=== PATIENT | male | born 1975 | race Hispanic/Latino ===

== ENCOUNTER 2016-11-21 11:08 | Observation (INO) | payer MEDICAID ==
[~2016-11-21] VITALS: Ht 170.2 cm; Wt 107.9 kg
[2016-11-21] VITALS (12 sets, daily range): BP systolic 108–161; BP diastolic 64–91; PULSE 70–96; RESP 14–20; O2SAT 95–100
[~2016-11-21 11:08] MED LIST: NOMED; fentaNYL-PF 50 mCg/mL 2 mL Inj ONE
[2016-11-21] MEDS ORDERED: Ondansetron 8 mg ODT Tablet ONE (11:31)
[2016-11-21 11:44] LABS: BASOPHILS % (AUTO) 0.2 % (0-3); EOSINOPHILS % (AUTO) 0.4 % (0-5); MONOCYTES % (AUTO) 7.1 % (4-12); Mean Corpuscular Hemoglobin 28.7 pg (27.0-35.0); Mean Corpuscular Volume 85.5 fL (81-100); NEUTROPHILS % (AUTO) 80.3 % (40-74); Platelet Count 225 bil/L (150-400)
[2016-11-21 12:08] LABS: Magnesium 1.8 mg/dL (1.6-2.6)
[2016-11-21 12:16] LABS: APPEARANCE,URINE CLEAR (CLEAR,HAZY); COLOR,URINE STRAW (YELLOW); OCCULT BLOOD,URINE TRACE (NEGATIVE); UROBILINOGEN,URINE NORMAL (NORMAL)
--- NOTE | 2016-11-21 13:21 | ED.REPORT ---
HPI-Abd Pain M 40 and Over Date of Service Nov 21, 2016 ED Provider: Arash Boone DO The patient is a 41 year old otherwise healthy male who presents to the emergency department complaining of abdominal pain that began earlier this morning. His pain was initially diffuse but is now localized to his RLQ. He noticed burning with urination earlier this morning. He has experienced nausea and vomiting. He has not had similar symptoms in the past. He denies previous surgeries or medical problems. Nursing Notes Stated Complaint: ABDOMINAL PAIN Chief Complaint: Male Abdominal Pain Nursing Notes Reviewed: Yes Allergies: Coded Allergies: No Known Allergies (Unverified Allergy, 05/22/12) Miscellaneous Medications No Historical Medication (No Historical Medication) Ea General Time Seen by MD: 13:00 Chief Complaint Abdominal pain Hx Obtained From: Patient Arrived By: Walk-in Sudden in Onset?: Yes Onset Occurred: 5 - 8 hours ago Symptom Duration: Since onset Progression since Onset: Constant, Gradually worsening Location: : Diffuse (initially) Quality: Painful Radiation: : RLQ (now localized here) Severity: Current: Moderate Severity: Maximum: Severe Recent Healthcare: No recent doctor visit, No recent hospitalization Similar Sx Previous: No Past Medical History Past Medical History None Past Surgical History None Family History Noncontributory Smoking History Current Some Day Smoker Social History Alcohol Use: "Social" (2-3 beers every few months) Drug Use: Denies drug use Other Social History: Good social support, Local resident Ambulatory Status Independent Review of Systems GI: Reports: Abdominal pain, Nausea, Vomiting, Denies: Bloody/tarry stool, Diarrhea, Hematemesis, Hematochezia, Melena Male: Reports Dysuria Complete sys rev & neg: except as marked. Physical Exam Initial Vital Signs Vital Signs (First) Date Time Temp Pulse Resp B/P Pulse Ox O2 Delivery O2 Flow Rate FiO2 11/21/16 11:16 36.4 83 20 127/88 100 Initial VS: Reviewed Head / Eyes: Atraumatic, Normocephalic, PERRL ENT: Mucous membranes moist, Conjunctiva normal, No scleral icterus Neck: Supple, Non-tender, Full range of motion Lymphatic: No lymphadenopathy Extremities: Vascular intact, Neuro intact, No swelling, No tenderness Skin: Warm, Dry, No cyanosis Neurologic: Alert, Oriented, Nonfocal Psychiatric: Mood/affect normal, Behavior normal, Normal thought content General/Constitutional: Awake, Alert, Cooperative Respiratory / Chest: Atraumatic, Breath sounds NL, Breath sounds = bilat, No respiratory distress, No rales, No rhonchi, No wheezing Cardiovascular: Heart rate NL, Regular rhythm, Heart sounds NL, Peripheral circulation NL Abdomen: Soft, BS normoactive, No distention, No hernia, No palpable mass, No pulsatile mass Tenderness/Guarding/Rebound: Positive: Guarding involuntary, Tender RLQ... Interpretation & Diagnostics Lab Results Interpretation Result Diagram: 11/21/16 1135 11/21/16 1135 Test 11/21/16 11:25 11/21/16 11:35 Urine Color Straw (YELLOW) Urine Appearance Clear (CLEAR,HAZY) Urine pH 8.0 (5.0-8.0) Urine Specific [place] 1.010 (1.003-1.035) Urine Protein Negativemg/dL (NEG,TRACE) Urine Glucose (UA) Negativemg/dL (NEGATIVE) Urine Ketones Negativemg/dL (NEGATIVE) Urine Occult Blood Trace (NEGATIVE) Urine Nitrite Negative (NEGATIVE) Urine Bilirubin Negative (NEGATIVE) Urine Urobilinogen Normalmg/dL (NORMAL) Urine Leukocyte Esterase Negative (NEGATIVE) Urine RBC 0-2/hpf (0-2) Urine WBC 0-5/hpf (0-5) Urine Epithelial Cells Occasional/hpf (NONE-MOD) Urine Crystals None seen (NONE SEEN) Urine Bacteria None/hpf (NONE-FEW) Urine Hyaline Casts None/lpf (NONE) Urine Granular Casts None seen (NONE SEEN) Urine Waxy Casts None seen (NONE SEEN) Urine Red Blood Cell Casts None seen (NONE SEEN) Urine White Blood Cell Casts None seen (NONE SEEN) Urine Mucus None seen (None Seen) Urine Trichomonas None seen (NONE SEEN) Urine Yeast None (NONE SEEN) Urinalysis Comment None Urine Culture Reflexed Not indicated White Blood Count 16.3th/mm3 (3.8-10.1) Red Blood Count 5.19mil/mm3 (4.40-5.80) Hemoglobin 14.9g/dL (13.8-17.2) Hematocrit 44.4% (41.0-50.0) Mean Corpuscular Volume 85.5fL (81-100) Mean Corpuscular Hemoglobin 28.7pg (27.0-35.0) Mean Corpuscular Hemoglobin Concent 33.6% (32.0-37.0) Red Cell Distribution Width 13.2% (12.3-15.4) Platelet Count 225bil/L (150-400) Neutrophils (%) (Auto) 80.3% (40-74) Lymphocytes (%) (Auto) 11.7% (14-46) Monocytes (%) (Auto) 7.1% (4-12) Eosinophils (%) (Auto) 0.4% (0-5) Basophils (%) (Auto) 0.2% (0-3) Sodium Level 138mEq/L (134-144) Potassium Level 4.3mEq/L (3.5-5.2) Chloride Level 97mEq/L (97-108) Carbon Dioxide Level 23mmol/L (18-29) Blood Urea Nitrogen 16mg/dL (6-24) Creatinine 0.73mg/dL (0.76-1.27) Estimat Glomerular Filtration Rate 125mL/min (>59) Glucose Level 131mg/dL (60-99) Calcium Level 9.1mg/dL (8.5-10.1) Magnesium Level 1.8mg/dL (1.6-2.6) Total Bilirubin 0.3mg/dL (0.0-1.2) Aspartate Amino Transf (AST/SGOT) 24U/L (0-50) Alanine Aminotransferase (ALT/SGPT) 24U/L (0-44) Alkaline Phosphatase 108U/L (25-150) Total Protein 8.0g/dL (6.4-8.4) Albumin 4.2g/dL (3.4-5.0) Lipase 16U/L (13-60) Hold Mckeon Top Tube Received (Received) CT Abd / Pelvis Interpretation IMPRESSION: 1. Acute appendicitis. 2. Findings discussed with Dr. Boone on 11.28 at 1411 hrs. Dictated by: Bianca Bell M.D. on 11/21/2016 at 14:11 Study type: Abdominal CT IV contrast Interpretation / Wet Read by: Interpret - Radiologist, Discussed w radiologist Re-Eval/Medical Decision Med Decision/Clinical Course Appendicitis. will plan to go to the OR. Zosyn given in the ER. Fluid resuscitated. Will be admitted. Source of Hx: Old records Re-Evaluation/Progress Note: Rechecked the patient. Discussed CT results, diagnosis, and plan for admission. All questions were addressed. Consultation : Referral / Consult Name: Elijah Castle MD Consulted With: Surgeon Requested Call at: 14:13 Call Returned at: 14:19 Office Nurse: Will see patient, Agrees with eval, Agrees with plan, Accepts admit Counseled Regarding: Diagnosis, Lab results, Need for admission Discharge & Departure Primary Impression: Acute appendicitis Acute appendicitis type: with localized peritonitis Qualified Code: K35.3 - Acute appendicitis with localized peritonitis Disposition: ADMITTED TO HOSPITAL Vital Signs - All Vital Signs Date Time Temp Pulse Resp B/P Pulse Ox O2 Delivery O2 Flow Rate FiO2 11/21/16 11:16 36.4 83 20 127/88 100 )( All Prior VS Reviewed: Yes Condition: Stable Referrals: NOPCP (PCP) Scribe Attestation Portions of this note were transcribed by Willow Bardales. I, Dr. Boone personally performed the history, physical exam and medical decision-making; I reviewed and confirmed the accuracy of the information in the transcribed note. Signed by: Sheron Aguayo, 11/21/2016 and 1430. Arash Boone DO Nov 21, 2016 13:21 Willow Bardales Nov 21, 2016 13:29
[2016-11-21] MEDS ORDERED: 0.9% Sodium Chloride 1,000 ML IV SCH (13:25)
[2016-11-21] MEDS: Ondansetron 2 mg/mL 2 mL Inj IVPUSH PRN ×2 (13:52→16:49)
--- NOTE | 2016-11-21 14:13 | DRSVH ---
PROCEDURE: CT ABDOMEN AND PELVIS WITH CONTRAST ([id number]) INDICATIONS: RLQ pain, wbc 16K TECHNIQUE: After the administration of intravenous contrast, 5 mm thick sections acquired from the diaphragm to the symphysis. 5 mm coronal and sagittal reformats were acquired. For radiation dose reduction, the following was used: automated exposure control, adjustment of mA and/or kV according to patient siz e. COMPARISON: None. FINDINGS: Image quality: Excellent. ABDOMEN: Lung bases: Lung bases are clear. Heart size is normal. Solid organs: Liver and spleen are normal in size and enhancement. Gallbladder is within normal hogue its. Biliary system is non dilated. Pancreas enhances normally. No adrenal nodules. Kidneys demon strate normal size and enhancement, without hydronephrosis. Peritoneum and bowel: Bowel loops demonstrate normal wall thickness and caliber. No free fluid or a ir. There are a few appendicolith present. There is distention of the appendix, measuring 13 mm short axis, with mild surrounding fat stranding. Nodes and vessels: No retroperitoneal or mesenteric adenopathy by size criteria. Aorta and inferior vena cava are normal in size. Miscellaneous: No ventral hernias. PELVIS: Genitourinary: Bladder wall thickness is normal. Miscellaneous: No inguinal hernias or adenopathy. Bones: No suspicious bony lesions. No vertebral body compression fractures. IMPRESSION: 1. Acute appendicitis. 2. Findings discussed with Dr. Boone on 11.28 at 1411 hrs. Dictated by: Bianca Bell M.D. on 11/21/2016 at 14:11 Approved by: Bianca Bell M.D. on 11/21/2016 at 14:11
[2016-11-21] MEDS ORDERED: Piperacillin-Tazo 3.375 Gm Inj 3.375 GM in Dextrose 5% Minibag Plus 50 ML IV ONE ×2 (14:15→20:35)
[2016-11-21] MEDS ORDERED: Alum-Mag Hydrox-Simeth 30 mL Suspension PO PRN (14:30)
[2016-11-21] MEDS ORDERED: Ondansetron 2 mg/mL 2 mL Inj IVPUSH PRN ×3 (14:30→21:25)
[2016-11-21] MEDS: 0.9% Sodium Chloride 1,000 ML IV SCH ×4 (14:30→21:10)
--- NOTE | 2016-11-21 17:43 | NUR ---
arrival Pt arrived on [facility] at 1740, able to transfer from [facility] to bed without assist, Pt stated pain good right now, oriented to room and call light, care continued.
[2016-11-21] MEDS ORDERED: OMEP20TA24 PO (18:30)
--- NOTE | 2016-11-21 18:38 | PCM.HPANE ---
Patient Data Surgeon Admitting Provider:Elijah Castle MD Attending Provider:Elijah Castle MD Primary Care Physician:Regulo Other Provider:Rhoda Damon Anesthesia Reason for Visit Acute Appendicitis Ht/WT & BMI Height (Feet): 5 Height (Inches): 8 Weight (Kilograms): 97.73 Body Mass Index Allergies Coded Allergies: No Known Allergies (Unverified Allergy, Unknown, 11/21/16) Past Anesthesia History Anesthesia History: Denies:: Anesthesia Reactions Diabetes History Hx Diabetes?: No MRSA MRSA: No Medications Reported Medications Omeprazole Magnesium (Prilosec Otc)20 Mg Tablet.dr20 Mg PO DAILY PRN For Dyspepsia or Heartburn #1 PKG Ref 0 11/21/16 No Historical Medication Ea 05/22/12 History History of ENT Problems?: No Hx of Heart Problems?: No Cardiovascular History: Denies:: Congestive Heart Failure Hypertension Hx of Respiratory Problem?: No Respiratory History: Denies:: Tuberculosis Hx Neurologic Problems?: No Hx of GI Problems?: Yes Gastrointestinal History: Positive for:: Gastrointestinal Bleeding Heartburn Hx of Problems?: No Male Hx: Denies:: Prostate Problems Scrotal Mass Testicular Surgery Hx Musculoskeletal Problems?: No Hx of Psycho/Social Problems?: No History Blood Transfusions: Positive for:: Accept Blood Products? Blood Transfusions Denies:: Blood Transfuse Reaction Hx Diabetes: No Hx Alcohol Use: YesAlcoholic Drinks Per Day: occational beerHx Substance Use: No Smoking Status: Current Some Day Smoker Have You Smoked inLast 12 mo: No (15 years ago) Stop/Bang Treated for Sleep Apnea?: No Do You Have a CPAP Machine?: No S-Snoring: Do You Snore Loudly: Yes T-Tired: feel tired, fatigued: No O-Obsered: Observed not breath: No P-Blood Pressure: treated: No B- Body Mass Index > 35 kg/m2: No A- Age over 50: No N- Neck Large Circumference: No G- Gender Male: Yes ROBERTO Total Score: 2 ROBERTO Risk Assessment: Low Risk, <3 Yes Risk Assessment Category Category 1A: Patient has history of documented sleep apnea, and HAS NOT received any narcotic, sedative or anesthesia administration during this stay. Category 1B: Patient has history of documented sleep apnea, and HAS received any narcotic , sedative or anesthesia administration during this stay Category 2: Patient has SUSPECTED Obstructive Sleep Apnea, and HAS received any narcotic , sedative or anesthesia administration during this stay. Category 3: Patient has SUSPECTED Obstructive Sleep Apnea and HAS NOT received narcotic, sedative or anesthesia administration during this stay. Category 4: Outpatient in Procedural Areas with known sleep apnea or who screen positive for High Risk via the STOP/BANG questionnaire. Exam Exam Vital Signs Vital Signs Date Time Temp Pulse Resp B/P Pulse Ox O2 Delivery O2 Flow Rate FiO2 11/21/16 17:44 37.6 78 18 108/64 97 Room Air 11/21/16 16:59 37.9 70 14 109/64 98 Room Air 11/21/16 16:51 37.9 70 14 109/64 98 Room Air 11/21/16 14:52 37.7 76 14 117/66 100 Room Air 11/21/16 11:16 36.4 83 20 127/88 100 General Appearance: Alert, Oriented X3, Cooperative, No Acute Distress HEENT/AIRWAY: MP 2 Lungs: Clear to Auscultation, Normal Air Movement Heart: Exam Unremarkable, Regular Rate/Rhythm, No Murmurs/Rubs/Gallops Meds/Labs/Diagnostics Admission Meds Current Medications Ondansetron HCl 8 mg 8 mg STK-MED ONCE .ROUTE Last administered on 11/21/16 11 :34; Start 11/21/16 at 11:31; Stop 11/21/16 at 11:32; Status DC Sodium Chloride 1,000 ml @ 0 mls/hr Q0M IV Last administered on 11/21/16 13: 51; Start 11/21/16 at 13:25 Piperacillin Sod/ Tazobactam Sod 3.375 gm/Dextrose/ Water 50 ml @ 100 mls/hr ONCE ONCE IV Last administered on 11/21/16 14:44; Start 11/21/16 at 14:15; Stop 11/21/16 at 14:44; Status DC Sodium Chloride (Normal Saline) 1,000 ml @ 200 mls/hr Q5H IV Last administered on 11/21/16 16:45; Start 11/21/16 at 14:25 Labs Test 11/21/16 11:25 11/21/16 11:35 11/21/16 14:30 Urine Color Straw (YELLOW) Urine Appearance Clear (CLEAR,HAZY) Urine pH 8.0 (5.0-8.0) Urine Specific [place] 1.010 (1.003-1.035) Urine Protein Negativemg/dL (NEG,TRACE) Urine Glucose (UA) Negativemg/dL (NEGATIVE) Urine Ketones Negativemg/dL (NEGATIVE) Urine Occult Blood Trace (NEGATIVE) Urine Nitrite Negative (NEGATIVE) Urine Bilirubin Negative (NEGATIVE) Urine Urobilinogen Normalmg/dL (NORMAL) Urine Leukocyte Esterase Negative (NEGATIVE) Urine RBC 0-2/hpf (0-2) Urine WBC 0-5/hpf (0-5) Urine Epithelial Cells Occasional/hpf (NONE-MOD) Urine Crystals None seen (NONE SEEN) Urine Bacteria None/hpf (NONE-FEW) Urine Hyaline Casts None/lpf (NONE) Urine Granular Casts None seen (NONE SEEN) Urine Waxy Casts None seen (NONE SEEN) Urine Red Blood Cell Casts None seen (NONE SEEN) Urine White Blood Cell Casts None seen (NONE SEEN) Urine Mucus None seen (None Seen) Urine Trichomonas None seen (NONE SEEN) Urine Yeast None (NONE SEEN) Urinalysis Comment None Urine Culture Reflexed Not indicated White Blood Count 16.3th/mm3 (3.8-10.1) Red Blood Count 5.19mil/mm3 (4.40-5.80) Hemoglobin 14.9g/dL (13.8-17.2) Hematocrit 44.4% (41.0-50.0) Mean Corpuscular Volume 85.5fL (81-100) Mean Corpuscular Hemoglobin 28.7pg (27.0-35.0) Mean Corpuscular Hemoglobin Concent 33.6% (32.0-37.0) Red Cell Distribution Width 13.2% (12.3-15.4) Platelet Count 225bil/L (150-400) Neutrophils (%) (Auto) 80.3% (40-74) Lymphocytes (%) (Auto) 11.7% (14-46) Monocytes (%) (Auto) 7.1% (4-12) Eosinophils (%) (Auto) 0.4% (0-5) Basophils (%) (Auto) 0.2% (0-3) Sodium Level 138mEq/L (134-144) Potassium Level 4.3mEq/L (3.5-5.2) Chloride Level 97mEq/L (97-108) Carbon Dioxide Level 23mmol/L (18-29) Blood Urea Nitrogen 16mg/dL (6-24) Creatinine 0.73mg/dL (0.76-1.27) Estimat Glomerular Filtration Rate 125mL/min (>59) Glucose Level 131mg/dL (60-99) Calcium Level 9.1mg/dL (8.5-10.1) Magnesium Level 1.8mg/dL (1.6-2.6) Total Bilirubin 0.3mg/dL (0.0-1.2) Aspartate Amino Transf (AST/SGOT) 24U/L (0-50) Alanine Aminotransferase (ALT/SGPT) 24U/L (0-44) Alkaline Phosphatase 108U/L (25-150) Total Protein 8.0g/dL (6.4-8.4) Albumin 4.2g/dL (3.4-5.0) Lipase 16U/L (13-60) Hold Mckeon Top Tube Received (Received) Hold Urine Received (Received) Plan Impression Patient chart reviewed, patient interviewed and anesthestic plan with risks, benefits, and alternatives discussed, and informed consent obtained. ASA Physical Status: ASA2 Mod Systemic Disease Anesthetic Plan: GA Bene/Risks/Altern/Consents: Yes HP Complete Prior to Induction: Yes Emma Her MD Nov 21, 2016 18:38
[2016-11-21] MEDS ORDERED: Lactated Ringer's 1,000 ML IV ONE (20:20)
[2016-11-21] MEDS ORDERED: Glycopyrrolate 0.2 mg/mL 5 mL Inj ONE (20:30)
[2016-11-21] MEDS ORDERED: Ondansetron 2 mg/mL 2 mL Inj ONE (20:30)
[2016-11-21] MEDS ORDERED: Neostigmine 1 mg/mL 5 mL Inj ONE (20:30)
[2016-11-21] MEDS ORDERED: Dexamethasone 4 mg/mL Inj ONE (20:30)
[2016-11-21] MEDS ORDERED: Propofol 10,000 mCg/mL 20 mL Inj ONE (20:30)
[2016-11-21] MEDS ORDERED: Succinylcholine Chloride 20 mg/mL 5 mL Inj ONE (20:30)
[2016-11-21] MEDS ORDERED: Lactated Ringer's 500 ML IV PRN (20:41)
[2016-11-21] MEDS ORDERED: Lactated Ringer's 1,000 ML IV SCH (20:41)
[2016-11-21] MEDS ORDERED: Atropine 0.4 mg/mL Inj IVPUSH PRN (20:45)
[2016-11-21] MEDS ORDERED: Dexamethasone 4 mg/mL Inj IVPUSH PRN (20:45)
[2016-11-21] MEDS ORDERED: Phenylephrine 10,000 mCg/mL Inj IVPUSH PRN (20:45)
[2016-11-21] MEDS ORDERED: Labetalol 5 mg/mL 4 mL Inj IV PRN (20:45)
[2016-11-21] MEDS ORDERED: fentaNYL-PF 50 mCg/mL 2 mL Inj IVPUSH PRN (20:45)
[2016-11-21] MEDS ORDERED: hydrALAZINE 20 mg/mL Inj IVPUSH PRN (20:45)
[2016-11-21] MEDS ORDERED: Bupivacaine-MPF 0.5% W/EPI 30 mL Inj INFILTRATE ONE (20:45)
[2016-11-21] MEDS ORDERED: EPHEDrine Sulfate 50 mg/mL Inj IVPUSH PRN (20:45)
[2016-11-21] MEDS ORDERED: HYDROmorphone 1 mg/mL Inj IVPUSH PRN ×2 (20:45→21:25)
[2016-11-21] MEDS ORDERED: MetoCLOpramide 5 mg/mL 2 mL Inj IVPUSH PRN (20:45)
[2016-11-21] MEDS: Piperacillin-Tazo 3.375 Gm Inj 3.375 GM in Dextrose 5% Minibag Plus 50 ML IV SCH ×2 (21:25→21:53)
[2016-11-21] MEDS ORDERED: HYDROcodone-APAP 5-325 mg Tablet PO PRN (21:25)
--- NOTE | 2016-11-21 21:57 | PCM.ANEP1 ---
Post Anesthesia Phase 1 PACU Phase 1 Assessment Vital Signs Vital Signs Date Time Temp Pulse Resp B/P Pulse Ox O2 Delivery O2 Flow Rate FiO2 11/21/16 21:50 80 17 122/74 100 Simple Mask 4 11/21/16 21:45 81 17 128/75 100 Simple Mask 4 11/21/16 21:40 80 16 142/77 100 Simple Mask 4 11/21/16 21:34 36.4 96 18 161/91 99 Simple Mask 4 11/21/16 17:44 37.6 78 18 108/64 97 Room Air 11/21/16 16:59 37.9 70 14 109/64 98 Room Air 11/21/16 16:51 37.9 70 14 109/64 98 Room Air 11/21/16 14:52 37.7 76 14 117/66 100 Room Air Anesthetic Administered: GA Level of Alertness: Awake, talking GOEL's with Equal Strength: Yes Pain: No Pain Scale Score: 0 Nausea or Vomiting: Yes Oxygen Delivery: Simple Mask Lungs: Clear to Auscultation, Normal Air Movement Emma Her MD Nov 21, 2016 21:57
--- NOTE | 2016-11-21 22:24 | NUR ---
OT OR: Pt. left at 1949 for OR. Awake, alert and talking.
[2016-11-21] MEDS: Dextrose 5% Lactated Ringer's 1,000 ML IV SCH (22:40)
--- NOTE | 2016-11-21 22:53 | NUR ---
POST OP: Pt. arrived from PACU at 2224 after Lap Appy. On arrival has 3 band aids on the left abdomen, all CDI. Pt. awake and talking. Denies n/v. Requesting water. Given H20 and ice chips. Placed on a cont. pulse oximetry and given 2 lit/ 02 per n/c as pt. is ROBERTO+, sat. now is 96% with [address] A & O, vss. On going care.
--- NOTE | 2016-11-22 00:15 | PCM.ANEP2 ---
Post Anesthesia Evaluation ASA/CMS Post Anesthesia VS in Patient's Normal Range?: Yes Resp Stable; Airway Patent?: Yes CV Function & Hydration Stable: Yes Mental Status Recovered?: Yes Pain control Satisfactory?: Yes N/V Control Satisfactory?: Yes Emma Her MD Nov 22, 2016 00:15
--- NOTE | 2016-11-22 00:18 | HP ---
[address] [address] HISTORY AND PHYSICAL PATIENT: LAURA WOODRUFF : 1975 MR#: [id number] ADMIT: 11/21/2016 JOB ID: [id number] CHIEF COMPLAINT: Appendicitis. HISTORY OF PRESENT ILLNESS: The patient is a 41-year-old male who presented to the emergency department today due to abdominal pain. According to the patient, the pain started around 7 or 7:30 this morning. He has never had this pain before. He felt it throughout his entire abdomen, but now it is more in the right lower quadrant. The pain is described as needlelike and sharp. He has been having some chills and this is associated with nausea, vomiting, today. He had a normal bowel movement early this morning and there was no diarrhea. Workup in the emergency department does include a CT scan, which showed findings consistent with acute appendicitis. His white blood count is also elevated at 16.3. PAST MEDICAL HISTORY: None. MEDICATIONS: None. ALLERGIES: None. SOCIAL HISTORY: The patient is , with one daughter. He lives in [place]. He works as a [employer] driver. FAMILY HISTORY: Negative for appendicitis. REVIEW OF SYSTEMS: Positive for the abdominal pain, nausea, vomiting, and chills. All other systems reviewed were negative. PHYSICAL EXAMINATION: The patient is currently in the emergency department [facility], in no acute distress. Temperature is 37.7, blood pressure 117/66, pulse is 76, respirations 14. His BMI is 32.8. Head is normocephalic, atraumatic. There is no scleral icterus. Neck is supple. Heart is regular rate. Lungs are clear. Abdomen is obese, but soft. It is exquisitely tender in the right lower quadrant. There is no peritoneal signs or masses. Extremities show no click, clubbing and no cyanosis. Neurologically, the patient is awake and alert, and conversant and answers questions appropriately. LABORATORY EXAMINATION: Showed a white blood count of 16.3, hematocrit 44.4, platelet count is 225. Sodium is 138, potassium 4.3, creatinine 0.73, lipase of 16. A CT scan of his abdomen and pelvis today shows findings consistent with acute appendicitis. ASSESSMENT: This is a 41-year-old male with likely acute appendicitis. The patient has been given IV antibiotics in the emergency department. We will take the patient to the operating room later today for laparoscopic appendectomy, possible open. The risks of the operation were explained to the patient and his , and they understand and wish to proceed.
[2016-11-22] MEDS: 0.9% Sodium Chloride 1,000 ML IV SCH ×4 (00:25→10:30)
--- NOTE | 2016-11-22 02:25 | OP ---
[address] [address] OPERATIVE REPORT PATIENT: LAURA WOODRUFF : 1975 MR#: [id number] ADMIT: 11/21/2016 JOB ID: [id number] DATE OF SURGERY: 11/21/2016 SURGEON: Elijah Castle MD. JEWEL STRINGER: Yenifer Rose PA-C ANESTHESIA: General. PREOPERATIVE DIAGNOSIS(ES): Acute appendicitis. POSTOPERATIVE DIAGNOSIS(ES): Acute appendicitis. PRINCIPAL PROCEDURE: Laparoscopic appendectomy. INDICATION FOR PROCEDURE: The patient is a 41-year-old male with signs and symptoms and CT scan finding consistent with acute appendicitis. OPERATIVE FINDING: Principal finding is successful laparoscopic appendectomy for non perforated appendicitis. The assistance from a surgical PA was integral in the completion of the case. PROCEDURE COURSE: The patient was brought to the operating table and was provided with general anesthesia. The patient had received IV antibiotics already. The patient was provided with SCDs. A time-out was performed. The patient's abdomen was then prepped and draped in the usual sterile fashion. Next, local anesthetic was injected into the left upper quadrant location and a 5 mm stab incision was made. A Veress needle was used to establish pneumoperitoneum. Next, a 5 mm trocar was then placed and the laparoscope was introduced. A second 5 mm trocar was then placed in the left lateral abdomen and a 12 mm trocar was then placed in the left lower quadrant. The appendix was quickly identified in the right lower quadrant, attached to the cecum with signs of acute appendicitis. It was not perforated. There is no purulent fluid noted. The mesoappendix was then taken using electrocautery. This was carried out until we reached the base of the appendix. Next using an endoscopic stapler, the base of the appendix was then transected. The specimen was then placed into the EndoCatch bag and removed from the patient. Inspection of the staple line shows that it was intact. There was no bleeding from the mesoappendix. Irrigation of the pelvis was performed. There is no fluid by the liver. Next we turned our attention to the left lower quadrant trocar site. The fascial defect there was then reapproximated using 0 Vicryl suture using the Endo Close device. Next, CO2 was allowed to escape and all the trocars were then removed from the patient. Skin edges were then reapproximated using absorbable sutures. Steri-Strips and sterile dressing were then placed over each wound. By the end of procedure, needle counts and sponge counts were correct. Patient was then extubated and taken to the recovery room in stable satisfactory condition.
[2016-11-22 04:58] VITALS: BP 111/67; PULSE 98; RESP 16; O2SAT 98
[2016-11-22 05:36] LABS: Mean Corpuscular Hemoglobin 28.8 pg (27.0-35.0); Mean Corpuscular Volume 86.9 fL (81-100)
[2016-11-22] MEDS: Piperacillin-Tazo 3.375 Gm Inj 3.375 GM in Dextrose 5% Minibag Plus 50 ML IV SCH (06:04)
--- NOTE | 2016-11-22 06:36 | NUR ---
pt did not understand the use of the urinal and family was dumping the urinal... pt was instructed by nurse about urinal use.. Addendum: 11/22/16 at 0637 by RUSLAN BACK CNA Amended: Links added.
--- NOTE | 2016-11-22 06:52 | NUR ---
ACTIVITY: Pt. slept most of the night. Voided multiple times per urinal but dumped the urine. Given 4 mg of IV ms this am for pain 03/21. Denies n/v. Tolerating PO intake. A & O, vss.
[2016-11-22] MEDS: Dextrose 5% Lactated Ringer's 1,000 ML IV SCH (07:22)
--- NOTE | 2016-11-22 09:03 | NUR ---
Social Work Brief Note: EMR reviewed. Patient is a 41 year old male admitted under observation status for acute appendicitis. Patient listed as self pay. Patient has no listed PCP. Patient resides in [facility] with Agueda, . Patient underwent laparscopic appendectomy and on bedrest at this time. SW will continue to follow EMR notes to ensure baseline with ambulation. SW contacted and left voice mail message for [facility] to assess for Medicaid eligibility. SW provided patient with dipak care application. , please refer to $4 med list upon discharge as patient is self pay. SW will continue to follow. PLAN: Home with , via POV, pending clinical course. [facility]CA contacted and dipak application provided. SW will continue to follow. Yan JENSEN
[2016-11-22] MEDS ORDERED: Acetaminophen PO (09:48)
[2016-11-22] MEDS ORDERED: SENN-133 PO (09:48)
[2016-11-22] MEDS ORDERED: HYDR-4003 PO (09:48)
--- NOTE | 2016-11-22 09:57 | PCM.DC.SUR ---
Discharge Summary Date of Service: Nov 22, 2016 Date of Hospital Admission: Nov 21, 2016 at 17:07 Date of Operation(s): 11/21/2016 Date of Discharge: 11/22/2016 Diagnosis at Time of Discharge Primary diagnosis : Acute appendicitis Secondary diagnosis: GERD Problems: Operation Laparoscopic appendectomy Brief History and Physical: The patient is a 41-year-old male who presented to the emergency department today due to abdominal pain. According to the patient, the pain started around 7 or 7:30 this morning. He has never had this pain before. He felt it throughout his entire abdomen, but now it is more in the right lower quadrant. The pain is described as needlelike and sharp. He has been having some chills and this is associated with nausea, vomiting, today. He had a normal bowel movement early this morning and there was no diarrhea. Workup in the emergency department does include a CT scan, which showed findings consistent with acute appendicitis. His white blood count is also elevated at 16.3. Consultants: General surgery: Dr. Elijah Castle [facility] Course: After undergoing the above procedure the patient was extubated in the operating room and taken to the recovery room. Pt. arrived from PACU at 2224 after Lap Appy. On arrival has 3 band aids on the left abdomen, all CDI. Pt. awake and talking. Denies n/v. Requesting water. Given H20 and ice chips. Placed on a cont. pulse oximetry and given 2 lit/ 02 per n/c as pt. is ROBERTO+, sat. now is 96 % with [address] A & O, vss. On going care. Pt. slept most of the night. Voided multiple times per urinal but dumped the urine. Given 4 mg of IV ms this am for pain 03/21. Denies n/v. Tolerating PO intake. A & O, vss. Postop day 1 the patient is sitting up in bed, states he has minimal pain, ate a light breakfast, denies nausea and vomiting, will ambulate shortly, if remains surgically stable patient is in agreement with discharge to home. Pathology: Pending Disposition: Discharged to home. Vital signs stable, afebrile, voiding, ambulating, pain control with oral analgesics, tolerating food by mouth Vital signs prior to discharge: Temperature 36.5, pulse 98, respirations 16, BP 116/67, oxygen saturations 98% room air Follow-up Plan: Dr. Elijah Castle, 1-2 weeks ([Acetaminophen]) 325 MG TABLET 650 MG PO Q6H PRN PRN For Fever Hydrocodone-Acetaminophen 5-325 mg (Hydrocodone-Acetaminophen 5-325 mg) 1 Each Tablet 1-2 TABLET PO Q4H PRN PRN For Pain No Historical Medication (No Historical Medication) Ea (Reported) Omeprazole Magnesium (Prilosec Otc) 20 Mg Tablet.dr 20 MG PO DAILY PRN PRN For Dyspepsia or Heartburn (Reported) Sennosides (Senna) 8.6 Mg Tablet 8.6 MG PO DAILY PRN PRN For Constipation Yenifer Rose PA-C Nov 22, 2016 09:57
--- NOTE | 2016-11-22 11:27 | NUR ---
Discharge Pt d/c'd home at approx 1115. Reviewed d/c instructions w/ patient and his w/ general assembler present. Denies questions or concerns at this time. IV d/c;d intact. Pt left via w/c and left w/ all belongings and hard copy of RX to friend's POV.
--- NOTE | 2016-11-23 14:23 | PATH ---
SURGICAL PATHOLOGY Attending Physician:Elijah Castle M.D. CASE STATUS: Signed Out PATIENT NAME: LAURA WOODRUFF PID: [id number] : 1975 DATE COLLECTED:11/21/2016 00:00 SPECIMEN: Appendix CLINICAL HISTORY: A: APPENDIX FINAL DIAGNOSIS: 1.APPENDIX: ACUTE APPENDICITIS. ICD10 CODE K35.80 GROSS DESCRIPTION: The specimen is received in one formalin filled container labeled with the patient's name, sublabeled "appendix" and consists of a cylindrical shaped appendix measuring 9.5 x 1.0 x 1.0 CM. The serosal surface is a light rasmussen-borrego. There is a large amount of attached fatty tissue. Sectioning reveals the wall to be approximately 0.3 CM in thickness. The lumen contains a light to red-brown to red friable to mucoid material. Clinical Business Manager sections are submitted in one cassette. 11/22/2016 DAC MICRO DESCRIPTION: See diagnosis. ICD-9 CODES: CPT CODES: 1: 89642 Electronically Signed Out Alvarez Leyva MD [facility] [address], [place] [address] Technical component performed at [facility], [address] [place] [address] [address], [place], [address]
== END 2016-11-22 11:00 | disposition home or self-care (01) ==
LOC: SED 11:08 → OSC 17:07
PROVIDERS: ADMIT Surgery; ATTEND Surgery
DX: K35.80 Unspecified acute appendicitis (principal); F17.210 Nicotine dependence, cigarettes, uncomplicated
CPT/HCPCS: 36415; 44970; 74177; 80053; 81000; 83690; 83735; 85025; 85027; 94640; 96361; 96365; 96375; 96376; 99285; G0378; J0330; J1100; J2250; J2270; J2405; J2543; J2710; J3010; J7030; J7120; Q9967